=== PATIENT | male | born 1970 | race Hispanic/Latino ===

== ENCOUNTER → 2023-11-29 | Day surgery (SDC) | payer OTHER ==
[~2023-11-29] MED LIST: ATORVASTATIN CA20 MG PO; FENTANYL CITRATE/PF 100MCG/2 ML INJ ONE; LACTATED RINGER'S 1,000 ML ONE; MIDAZOLAM HCL 2 MG/2 ML VIAL ONE; OR PHACO EYE KIT ONE; PREOP PHACO EYE KIT ONE; PROPARACAINE HCL 0.5% OP SOLN 15 ML BTL ONE
[2023-11-29 08:35] VITALS: TEMP 97.5
[2023-11-29 08:50] VITALS: BP 140/85; PULSE 68; RESP 17; O2SAT 96
== END | disposition home or self-care (01) ==
LOC: OR 06:12
PROVIDERS: ATTEND Ophthalmology
DX: H25.11 Age-related nuclear cataract, right eye (principal); E78.5 Hyperlipidemia, unspecified; Z79.899 Other long term (current) drug therapy
CPT/HCPCS: 66984; J2250; J3010; J7121; V2632